=== PATIENT | male | born 1955 | race Caucasian/White ===

== ENCOUNTER → 2017-10-20 | Outpatient (CLI) | payer BC ==
[~2017-10-20] MED LIST: AMOXICILLIN/CLA1 TA1 PO; BACTRIM DS 8001 TAB PO; CEPHALEXIN500 M1 PO; DIABETA 5MG5 MG/TAB PO; JANUMET 1000 MG1 TA1 PO; LEVAQUIN 5500 MG/TA1 PO; LEVEMIR SQ; NO HOME MEDICATIONS; NORCO 325 MG-7.1 TAB PO; NOVLOG SQ; VIAGRA 25MG TAB25 MG PO; VICODIN 5/5001 UDTAB PO; ZESTRIL 10MG10 MG PO
== END ==
LOC: ZCOL.LAB 16:13
DX: M79.672 Pain in left foot (principal)

== ENCOUNTER 2017-10-26 17:55 | Inpatient (IN) | payer BC ==
[~2017-10-26] VITALS: Ht 170.2 cm; Wt 108.7 kg
[2017-10-26 18:19] VITALS: BP 106/66; PULSE 88; TEMP 108.7; TEMP 98.5
[2017-10-26 19:00] LABS: HEMATOCRIT 40.3 % (42.0-52.0); HEMOGLOBIN 13.3 g/dl (13.5-18.0); MEAN CELL VOLUME 87 fl (80.0-100.0); MEAN CORPUSCULAR HEMOGLOBIN 29 pg (27.0-31.0); MEAN CORPUSCULAR HGB CONC 33 g/dl (33.0-37.0); MEAN PLATELET VOLUME 9.9 fl (7.4-10.4); PLATELET COUNT 610 K/mm3 (130-400); RED BLOOD COUNT 4.65 M/mm3 (4.20-5.60)
[2017-10-26 19:01] LABS: WHITE BLOOD COUNT 22.2 K/mm3 (4.8-10.8)
[2017-10-26 19:02] LABS: ADD PATHOLOGY DIFF REVIEW NO
[2017-10-26 19:06] LABS: CALCIUM 10.4 mg/dL (8.4-10.2); CREATININE, serum 2.31 mg/dL (0.66-1.25)
[2017-10-26 19:10] LABS: POTASSIUM 6.1 mmol/L (3.4-5.0)
[2017-10-26 19:11] LABS: LACTIC ACID 1.4 mmol/L (0.4-2.0)
[2017-10-26 19:13] LABS: BAND 2 % (0-10); HEMOGLOBIN A1C 7.6 %; LYMPHOCYTE 12 % (20.0-51.0); NEUTROPHILS 77 % (42.0-75.2); PLATELET ESTIMATE INCREASED (NORMAL); TOTAL CELLS COUNTED 100
[2017-10-26 21:30] VITALS: BP 116/56; PULSE 77; TEMP 98.8
[2017-10-27] VITALS (11 sets, daily range): BP systolic 100–155; BP diastolic 39–99; PULSE 61–88; TEMP 98–98.8
[2017-10-27 01:31] LABS: HYALINE CAST >12 /lpf; MUCOUS Present /lpf; PH 5 (5-8); SQUAMOUS EPITHELIAL None Seen /hpf; URINE APPEARANCE Hazy; URINE BACTERIA None Seen /hpf; URINE BILIRUBIN Negative (NEGATIVE); URINE BLOOD Negative (NEGATIVE); URINE CALCIUM OXALATE CRYSTAL Present /hpf; URINE COLOR Yellow; URINE GLUCOSE Negative (NEGATIVE); URINE KETONE Trace (NEGATIVE); URINE LEUKOCYTE ESTERASE Negative (NEGATIVE); URINE PROTEIN(semi-quant) Negative (NEGATIVE); URINE RBC 0-2 /hpf; URINE UROBILINOGEN >=4.0 mg/dL (NEGATIVE); URINE WBC 0-2 /hpf
[2017-10-27 01:34] LABS: AMPHETAMINE URINE NEGATIVE; BARBITURATES URINE NEGATIVE; BENZODIAZEPINES URINE POSITIVE; BUPRENORPHINE URINE NEGATIVE; METHADONE URINE NEGATIVE; OPIATES URINE NEGATIVE; OXYCODONE URINE NEGATIVE; PHENCYCLIDINE URINE NEGATIVE; PROPOXYPHENE URINE NEGATIVE; THC CANNABINOIDS URINE NEGATIVE; TRICYCLIC ANTIDEPRESS URINE NEGATIVE
[2017-10-27 01:41] LABS: COLLECTION METHOD CLEAN CATCH
[2017-10-27 06:52] LABS: MEAN CELL VOLUME 88 fl (80.0-100.0); MEAN CORPUSCULAR HGB CONC 33 g/dl (33.0-37.0); RED BLOOD COUNT 3.75 M/mm3 (4.20-5.60); WHITE BLOOD COUNT 13.9 K/mm3 (4.8-10.8)
[2017-10-27 06:58] LABS: INR 1.4 (0.8-3.0); PROTHROMBIN TIME 16.4 SECONDS (9.7-12.8)
[2017-10-27 07:01] LABS: ADD PATHOLOGY DIFF REVIEW NO; HEMATOCRIT 32.9 % (42.0-52.0); HEMOGLOBIN 10.7 g/dl (13.5-18.0); MEAN CORPUSCULAR HEMOGLOBIN 29 pg (27.0-31.0); PLATELET COUNT 471 K/mm3 (130-400)
[2017-10-27 07:06] LABS: ADJUSTED CALCIUM 9.9 mg/dL (8.4-10.2); ALBUMIN 2.9 gm/dL (3.5-5.0); BILIRUBIN,TOTAL 0.5 mg/dL (0.0-1.0); CREATININE, serum 1.37 mg/dL (0.66-1.25); POTASSIUM 4.9 mmol/L (3.4-5.0); TOTAL PROTEIN 6.7 gm/dL (6.4-8.2)
[2017-10-27 07:21] LABS: BAND 5 % (0-10); EOSINOPHIL 1 % (0-4); LYMPHOCYTE 15 % (20.0-51.0); NEUTROPHILS 73 % (42.0-75.2); PLATELET ESTIMATE INCREASED (NORMAL); TOTAL CELLS COUNTED 100
[2017-10-27] MEDS ORDERED: ASPIRIN 81M81 MG/TA2 PO (08:25)
[2017-10-27] MEDS ORDERED: ZOCOR 40MG40 MG PO (08:26)
[2017-10-27] MEDS ORDERED: VIAGRA100 M1 PO (08:27)
[2017-10-27] MEDS ORDERED: LASIX 20MG TABL20 MG PO (08:27)
[2017-10-27] MEDS ORDERED: TRESIBA FL200 UNIT/1 SQ (08:29)
[2017-10-27] MEDS ORDERED: BACTRIM DS 8001 TAB PO (08:33)
[2017-10-28 01:54] VITALS: BP 139/64; PULSE 79; TEMP 98.2
[2017-10-28 04:49] VITALS: BP 124/45; PULSE 71; TEMP 98.5
[2017-10-28 07:17] LABS: MEAN CELL VOLUME 88 fl (80.0-100.0); MEAN CORPUSCULAR HGB CONC 32 g/dl (33.0-37.0); MEAN PLATELET VOLUME 10.2 fl (7.4-10.4); PLATELET COUNT 435 K/mm3 (130-400); RED BLOOD COUNT 3.48 M/mm3 (4.20-5.60); WHITE BLOOD COUNT 9.6 K/mm3 (4.8-10.8)
[2017-10-28 07:18] LABS: ADD PATHOLOGY DIFF REVIEW NO; HEMATOCRIT 30.6 % (42.0-52.0); HEMOGLOBIN 9.9 g/dl (13.5-18.0); MEAN CORPUSCULAR HEMOGLOBIN 28 pg (27.0-31.0)
[2017-10-28 07:27] LABS: CALCIUM 8.5 mg/dL (8.4-10.2); CREATININE, serum 0.91 mg/dL (0.66-1.25); POTASSIUM 4.8 mmol/L (3.4-5.0)
[2017-10-28 07:48] LABS: BAND 1 % (0-10); BASOPHIL 2 % (0-2); EOSINOPHIL 2 % (0-4); LYMPHOCYTE 19 % (20.0-51.0); NEUTROPHILS 73 % (42.0-75.2); NUCLEATED RED BLOOD CELL 1 (0-6); PLATELET ESTIMATE NORMAL (NORMAL); TOTAL CELLS COUNTED 100
[2017-10-28 14:16] VITALS: BP 113/50; PULSE 75; TEMP 98.7
[2017-10-28 18:19] VITALS: BP 114/44; PULSE 75; TEMP 98.6
[2017-10-28 21:13] VITALS: BP 142/59; PULSE 77; TEMP 98.5
[2017-10-29 06:11] LABS: BASO # 0.1 (0.0-0.2); BASO % 1.2 % (0.0-2.0); EOS # 0.3 (0.0-0.7); EOS % 3.3 % (0-4.0); GRAN # 4.2 (1.4-6.5); GRAN % 55.6 % (42.2-75.2); LYMPH # 2.3 (1.2-3.4); LYMPH % 30.4 % (20.0-51.0); MEAN CELL VOLUME 89 fl (80.0-100.0); MEAN CORPUSCULAR HGB CONC 32 g/dl (33.0-37.0); MEAN PLATELET VOLUME 9.9 fl (7.4-10.4); MONO # 0.6 (0.1-0.6); MONO % 8.4 % (1.7-9.3); PLATELET COUNT 411 K/mm3 (130-400); WHITE BLOOD COUNT 7.5 K/mm3 (4.8-10.8)
[2017-10-29 06:14] LABS: MEAN CORPUSCULAR HEMOGLOBIN 29 pg (27.0-31.0)
[2017-10-29 06:22] VITALS: BP 132/65; PULSE 72; TEMP 98
[2017-10-29 06:23] LABS: CALCIUM 8.6 mg/dL (8.4-10.2); CREATININE, serum 0.76 mg/dL (0.66-1.25); POTASSIUM 4.5 mmol/L (3.4-5.0)
[2017-10-29 09:24] VITALS: BP 120/50; PULSE 76; TEMP 98.4
[2017-10-29 14:12] VITALS: BP 134/66; PULSE 76; TEMP 98.8
[2017-10-29 22:08] VITALS: BP 138/57; PULSE 80; TEMP 98.6
[2017-10-30 06:31] VITALS: BP 131/73; PULSE 71; TEMP 98.6
[2017-10-30 07:00] LABS: CALCIUM 8.6 mg/dL (8.4-10.2); CREATININE, serum 0.71 mg/dL (0.66-1.25); POTASSIUM 4.3 mmol/L (3.4-5.0)
[2017-10-30 09:28] VITALS: BP 116/58; PULSE 71; TEMP 97.3
[2017-10-30 13:20] VITALS: BP 127/60; PULSE 73; TEMP 98.6
[2017-10-30 16:41] LABS: CREATININE, serum 0.8 mg/dL (0.66-1.25)
[2017-10-30 16:55] LABS: FRACTIONAL EXCRETION OF NA+ 0.6 %
[2017-10-30 22:27] VITALS: BP 127/58; PULSE 75; TEMP 97.9
[2017-10-31 01:47] VITALS: BP 122/65; PULSE 80; TEMP 97.9
[2017-10-31 06:36] LABS: CALCIUM 8.6 mg/dL (8.4-10.2); CREATININE, serum 0.71 mg/dL (0.66-1.25); POTASSIUM 4.7 mmol/L (3.4-5.0)
[2017-10-31 06:41] VITALS: BP 109/50; PULSE 64; TEMP 98.5
[2017-10-31 09:30] VITALS: BP 96/43; PULSE 80; TEMP 98.2
[2017-10-31 13:29] VITALS: BP 113/50; PULSE 72; TEMP 97.4
[2017-10-31 17:18] VITALS: BP 139/68; PULSE 72; TEMP 98.2
[2017-10-31 21:41] VITALS: BP 113/53; PULSE 77; TEMP 98.5
[2017-11-01 01:18] VITALS: BP 118/53; PULSE 72; TEMP 98.2
[2017-11-01 05:15] VITALS: BP 130/66; PULSE 75; TEMP 97.6
[2017-11-01 09:16] LABS: C-REACTIVE PROTEIN 2.6 mg/dL (0.0-0.9); CALCIUM 8.9 mg/dL (8.4-10.2); CREATININE, serum 0.75 mg/dL (0.66-1.25); POTASSIUM 4.3 mmol/L (3.4-5.0)
[2017-11-01 10:47] VITALS: BP 142/81; PULSE 99; TEMP 98.5
[2017-11-01 14:53] VITALS: BP 136/66; PULSE 80; TEMP 97.9
[2017-11-01 17:57] VITALS: BP 106/81; PULSE 80; TEMP 98.3
[2017-11-01 22:01] VITALS: BP 116/58; PULSE 79; TEMP 98.5
[2017-11-02 05:14] VITALS: BP 132/66; PULSE 69; TEMP 98.4
[2017-11-02 07:48] LABS: CALCIUM 9.1 mg/dL (8.4-10.2); CREATININE, serum 0.69 mg/dL (0.66-1.25); POTASSIUM 4.1 mmol/L (3.4-5.0)
[2017-11-02 10:00] VITALS: BP 111/57; PULSE 71; TEMP 98.1
[2017-11-02] MEDS ORDERED: ROCEPHIN 2GM VIAL21 IJ (10:52)
[2017-11-02] MEDS ORDERED: ASPI325T6 PO (12:07)
[2017-11-02 14:02] VITALS: BP 117/69; PULSE 70; TEMP 98.5
[2017-11-02] MEDS ORDERED: NOVLOG SQ (15:34)
[2017-11-02] MEDS ORDERED: TRESIBA FL200 UNIT/1 SQ (15:34)
[2017-11-02] MEDS ORDERED: NOVOLOG FLEX100 U/ML SQ (15:43)
== END 2017-11-02 19:45 | disposition home or self-care (01) | DRG 854 ==
LOC: SURG 17:55
PROVIDERS: Internal Medicine Nephrology; Nurse Practitioner; Orthopaedic Surgery; Physician Assistant
PROC: 0Y6Y0Z0 Detachment at Left 5th Toe, Complete, Open Approach (ICD-10-PCS; 2017-10-27)
PROC: 0Y6W0Z0 Detachment at Left 4th Toe, Complete, Open Approach (ICD-10-PCS; 2017-10-27)
PROC: 0QBM0ZZ Excision of Left Tarsal, Open Approach (ICD-10-PCS; principal; 2017-10-27 14:45)
PROC: 0Y6U0Z0 Detachment at Left 3rd Toe, Complete, Open Approach (ICD-10-PCS; 2017-10-27 14:45)
DX: A41.01 Sepsis due to Methicillin susceptible Staphylococcus aureus (principal); M86.172 Other acute osteomyelitis, left ankle and foot; L97.424 Non-pressure chronic ulcer of left heel and midfoot with necrosis of bone; N17.9 Acute kidney failure, unspecified; E87.1 Hypo-osmolality and hyponatremia; E87.2 Acidosis; E11.42 Type 2 diabetes mellitus with diabetic polyneuropathy; E11.69 Type 2 diabetes mellitus with other specified complication; B95.1 Streptococcus, group B, as the cause of diseases classified elsewhere; E11.621 Type 2 diabetes mellitus with foot ulcer; I10 Essential (primary) hypertension; F17.220 Nicotine dependence, chewing tobacco, uncomplicated; E87.5 Hyperkalemia; D64.9 Anemia, unspecified; B95.61 Methicillin susceptible Staphylococcus aureus infection as the cause of diseases classified elsewhere
CPT/HCPCS: 99222-AI; 99232-AI; 99233-AI; A9284; C1751; C1894; J0690; J0696; J1644; J1650; J1815; J2185; J2250; J2704; J2997; J3010; J3370; J7030; J7050

== ENCOUNTER 2017-11-03 12:47 | Outpatient (RCR) | payer BC ==
[~2017-11-03] VITALS: Ht 170.2 cm; Wt 109.5 kg
[~2017-11-03 12:47] MED LIST changes: +ASPI325T6 PO; +ASPIRIN 81M81 MG/TA2 PO; +LASIX 20MG TABL20 MG PO; +NOVOLOG FLEX100 U/ML SQ; +ROCEPHIN 2GM VIAL21 IJ; +TRESIBA FL200 UNIT/1 SQ; +VIAGRA100 M1 PO; +ZOCOR 40MG40 MG PO
[2017-11-03 13:16] VITALS: BP 113/63; PULSE 84; TEMP 97.7
[2017-11-04 06:43] VITALS: BP 91/51; PULSE 85; TEMP 97.6
[2017-11-05 08:28] VITALS: BP 89/53; PULSE 87; TEMP 97.2
[2017-11-05 09:03] LABS: MEAN CELL VOLUME 87 fl (80.0-100.0); MEAN CORPUSCULAR HGB CONC 33 g/dl (33.0-37.0); MEAN PLATELET VOLUME 10.3 fl (7.4-10.4); PLATELET COUNT 277 K/mm3 (130-400); RED BLOOD COUNT 3.77 M/mm3 (4.20-5.60)
[2017-11-05 09:04] LABS: HEMATOCRIT 32.9 % (42.0-52.0); HEMOGLOBIN 10.8 g/dl (13.5-18.0); MEAN CORPUSCULAR HEMOGLOBIN 29 pg (27.0-31.0)
[2017-11-05 09:19] LABS: ALBUMIN 3.4 gm/dL (3.5-5.0); BILIRUBIN,TOTAL 0.4 mg/dL (0.0-1.0); C-REACTIVE PROTEIN 1.4 mg/dL (0.0-0.9); CREATININE, serum 1.18 mg/dL (0.66-1.25); POTASSIUM 4.5 mmol/L (3.4-5.0); TOTAL PROTEIN 6.9 gm/dL (6.4-8.2)
[2017-11-05 10:30] LABS: ERYTHROCYTE SEDIMENTATION RATE 40 mm/hr (0-30)
[2017-11-06 07:15] VITALS: BP 90/50; PULSE 85; TEMP 98
[2017-11-07 07:15] VITALS: BP 107/55; PULSE 79; TEMP 97.5
== END 2017-11-07 19:00 | disposition home or self-care (01) ==
LOC: EUO 12:51
PROVIDERS: Internal Medicine
DX: M86.9 Osteomyelitis, unspecified (principal)
CPT/HCPCS: J0696; J1644

== ENCOUNTER → 2017-11-25 | Outpatient (CLI) | payer BC ==
[~2017-11-25] MED LIST changes: +CUBICIN 500MG500 MG IV
== END ==
LOC: COL.RAD 12:59
DX: E11.621 Type 2 diabetes mellitus with foot ulcer (principal)

== ENCOUNTER → 2017-11-26 | Outpatient (CLI) | payer BC | LOC: COL.RAD 10:11 | DX: Z01.89 Encounter for other specified special examinations (principal) ==

== ENCOUNTER 2017-12-12 07:25 | Outpatient (RCR) | payer BC ==
[2017-11-08 09:15] VITALS: BP 103/59; PULSE 78; TEMP 97.8
[2017-11-09 10:00] VITALS: BP 111/53; PULSE 90; TEMP 97.7
[2017-11-10 09:01] VITALS: BP 114/59; PULSE 77; TEMP 97.5
[2017-11-11 08:03] VITALS: BP 92/45; PULSE 82; TEMP 97.5
[2017-11-11 08:58] LABS: MEAN CELL VOLUME 87 fl (80.0-100.0); MEAN CORPUSCULAR HGB CONC 33 g/dl (33.0-37.0); MEAN PLATELET VOLUME 12.3 fl (7.4-10.4); PLATELET COUNT 179 K/mm3 (130-400); RED BLOOD COUNT 3.67 M/mm3 (4.20-5.60); REDCELL DISTRIBUTION WIDTH-CV 13.5 % (11.5-14.5)
[2017-11-11 09:04] LABS: HEMATOCRIT 31.9 % (42.0-52.0); HEMOGLOBIN 10.6 g/dl (13.5-18.0); MEAN CORPUSCULAR HEMOGLOBIN 29 pg (27.0-31.0)
[2017-11-11 09:08] LABS: ALBUMIN 3.4 gm/dL (3.5-5.0); BILIRUBIN,TOTAL 0.6 mg/dL (0.0-1.0); C-REACTIVE PROTEIN 5.9 mg/dL (0.0-0.9); CALCIUM 8.9 mg/dL (8.4-10.2); CREATININE, serum 1.17 mg/dL (0.66-1.25); POTASSIUM 4.6 mmol/L (3.4-5.0); TOTAL PROTEIN 6.9 gm/dL (6.4-8.2)
[2017-11-11 09:26] LABS: ERYTHROCYTE SEDIMENTATION RATE 52 mm/hr (0-30)
[2017-11-12 07:26] VITALS: BP 91/50; PULSE 82; TEMP 97.4
[2017-11-13 08:12] VITALS: BP 103/59; PULSE 83; TEMP 98.2
[2017-11-14 07:35] VITALS: BP 85/40; PULSE 852; TEMP 98.2
[2017-11-14 07:46] VITALS: BP 103/52; PULSE 87
[2017-11-15 07:09] VITALS: BP 131/59; PULSE 75
[2017-11-16 07:01] VITALS: BP 113/60; PULSE 83; TEMP 97.9
[2017-11-16 07:50] LABS: BASO % 0.4 % (0.0-2.0); EOS # 0.4 (0.0-0.7); EOS % 4.3 % (0-4.0); GRAN # 6.9 (1.4-6.5); GRAN % 76.7 % (42.2-75.2); LYMPH # 0.9 (1.2-3.4); MEAN CELL VOLUME 85 fl (80.0-100.0); MEAN CORPUSCULAR HGB CONC 34 g/dl (33.0-37.0); MONO # 0.7 (0.1-0.6); MONO % 8.2 % (1.7-9.3); PLATELET COUNT 178 K/mm3 (130-400); RED BLOOD COUNT 3.69 M/mm3 (4.20-5.60); REDCELL DISTRIBUTION WIDTH-CV 13.6 % (11.5-14.5)
[2017-11-16 07:51] LABS: HEMATOCRIT 31.3 % (42.0-52.0); HEMOGLOBIN 10.5 g/dl (13.5-18.0); MEAN CORPUSCULAR HEMOGLOBIN 28 pg (27.0-31.0)
[2017-11-16 08:01] LABS: ALBUMIN 3.1 gm/dL (3.5-5.0); BILIRUBIN,TOTAL 3.5 mg/dL (0.0-1.0); CALCIUM 8.8 mg/dL (8.4-10.2); CREATININE, serum 0.81 mg/dL (0.66-1.25); POTASSIUM 4.3 mmol/L (3.4-5.0); TOTAL PROTEIN 6.5 gm/dL (6.4-8.2)
[2017-11-16 08:14] LABS: ERYTHROCYTE SEDIMENTATION RATE 78 mm/hr (0-30)
[2017-11-16 08:22] LABS: C-REACTIVE PROTEIN 18.4 mg/dL (0.0-0.9)
[2017-11-17 07:14] VITALS: BP 115/74; PULSE 81; TEMP 97.6
[2017-11-18 07:15] VITALS: BP 104/61; PULSE 84; TEMP 97.7
[2017-11-19 07:12] VITALS: BP 99/54; PULSE 84; TEMP 97.2
[2017-11-23 08:17] VITALS: BP 103/58; PULSE 88; TEMP 97.5
[2017-11-23 08:22] LABS: HEMATOCRIT 33.4 % (42.0-52.0); HEMOGLOBIN 11.2 g/dl (13.5-18.0); MEAN CELL VOLUME 84 fl (80.0-100.0); MEAN CORPUSCULAR HEMOGLOBIN 28 pg (27.0-31.0); MEAN CORPUSCULAR HGB CONC 34 g/dl (33.0-37.0); PLATELET COUNT 383 K/mm3 (130-400); REDCELL DISTRIBUTION WIDTH-CV 15.5 % (11.5-14.5)
[2017-11-23 08:31] LABS: ALBUMIN 3.5 gm/dL (3.5-5.0); BILIRUBIN,TOTAL 3.2 mg/dL (0.0-1.0); C-REACTIVE PROTEIN 2.5 mg/dL (0.0-0.9); CALCIUM 9.4 mg/dL (8.4-10.2); CREATININE, serum 0.79 mg/dL (0.66-1.25); POTASSIUM 4.7 mmol/L (3.4-5.0); TOTAL PROTEIN 7.1 gm/dL (6.4-8.2)
[2017-11-23 08:38] LABS: BAND 4 % (0-10); EOSINOPHIL 5 % (0-4); LYMPHOCYTE 24 % (20.0-51.0); MYELOCYTE 1 % (0-0); NEUTROPHILS 59 % (42.0-75.2)
[2017-11-23 08:42] LABS: PLATELET ESTIMATE NORMAL (NORMAL)
[2017-11-23 08:43] LABS: STOMATOCYTE 2+; TARGET CELLS 2+
[2017-11-23 08:44] LABS: TOXIC GRANULATION PRESENT
[2017-11-23 08:50] LABS: ERYTHROCYTE SEDIMENTATION RATE 58 mm/hr (0-30)
[2017-11-26 08:14] VITALS: BP 107/54; PULSE 92; TEMP 97.4
[2017-11-26 08:38] LABS: BASO # 0.1 (0.0-0.2); BASO % 1.2 % (0.0-2.0); EOS # 0.4 (0.0-0.7); EOS % 4.3 % (0-4.0); GRAN # 5.8 (1.4-6.5); GRAN % 63.7 % (42.2-75.2); LYMPH % 21.3 % (20.0-51.0); MEAN CELL VOLUME 86 fl (80.0-100.0); MEAN CORPUSCULAR HGB CONC 33 g/dl (33.0-37.0); MEAN PLATELET VOLUME 10.6 fl (7.4-10.4); MONO # 0.8 (0.1-0.6); MONO % 8.5 % (1.7-9.3); PLATELET COUNT 388 K/mm3 (130-400); RED BLOOD COUNT 3.89 M/mm3 (4.20-5.60)
[2017-11-26 08:40] LABS: HEMATOCRIT 33.5 % (42.0-52.0); MEAN CORPUSCULAR HEMOGLOBIN 28 pg (27.0-31.0)
[2017-11-26 08:58] LABS: ALBUMIN 3.6 gm/dL (3.5-5.0); C-REACTIVE PROTEIN 1.2 mg/dL (0.0-0.9); CALCIUM 9.5 mg/dL (8.4-10.2); CREATININE, serum 0.81 mg/dL (0.66-1.25); POTASSIUM 4.6 mmol/L (3.4-5.0)
[2017-11-26 09:03] LABS: ERYTHROCYTE SEDIMENTATION RATE 35 mm/hr (0-30)
[2017-11-26 11:14] VITALS: BP 112/52; PULSE 81; TEMP 97.2
[2017-11-27 07:41] VITALS: BP 140/55; PULSE 91
[2017-11-28 07:30] VITALS: BP 141/56; PULSE 90; TEMP 97.4
[2017-11-29 07:56] VITALS: BP 85/48; PULSE 91; TEMP 97.4
[2017-11-30 06:45] VITALS: BP 105/62; PULSE 90; TEMP 97.3
[2017-12-01 07:14] VITALS: BP 107/49; PULSE 81; TEMP 97.1
[2017-12-02 06:58] VITALS: BP 98/55; PULSE 86; TEMP 97.8
[2017-12-02 07:14] LABS: HEMATOCRIT 31.5 % (42.0-52.0); HEMOGLOBIN 10.3 g/dl (13.5-18.0); MEAN CELL VOLUME 88 fl (80.0-100.0); MEAN CORPUSCULAR HEMOGLOBIN 29 pg (27.0-31.0); MEAN CORPUSCULAR HGB CONC 33 g/dl (33.0-37.0); MEAN PLATELET VOLUME 10.8 fl (7.4-10.4); PLATELET COUNT 277 K/mm3 (130-400); REDCELL DISTRIBUTION WIDTH-CV 15.6 % (11.5-14.5)
[2017-12-02 07:27] LABS: ALBUMIN 3.4 gm/dL (3.5-5.0); BILIRUBIN,TOTAL 1.4 mg/dL (0.0-1.0); C-REACTIVE PROTEIN 1.2 mg/dL (0.0-0.9); CALCIUM 9.3 mg/dL (8.4-10.2); CREATININE, serum 0.86 mg/dL (0.66-1.25); POTASSIUM 4.6 mmol/L (3.4-5.0); TOTAL PROTEIN 6.5 gm/dL (6.4-8.2)
[2017-12-02 07:33] LABS: ERYTHROCYTE SEDIMENTATION RATE 37 mm/hr (0-30)
[2017-12-03 07:05] VITALS: BP 113/56; PULSE 86; TEMP 97.2
[2017-12-04 07:51] VITALS: BP 118/66; PULSE 80; TEMP 97.4
[2017-12-05 07:35] VITALS: BP 110/53; PULSE 90; TEMP 97.5
[2017-12-06 07:20] VITALS: BP 98/52; PULSE 86; TEMP 98
[2017-12-06 07:32] LABS: BASO # 0.1 (0.0-0.2); BASO % 1.3 % (0.0-2.0); EOS # 0.3 (0.0-0.7); EOS % 3.6 % (0-4.0); GRAN # 4.4 (1.4-6.5); LYMPH # 2.1 (1.2-3.4); LYMPH % 28.2 % (20.0-51.0); MEAN CELL VOLUME 87 fl (80.0-100.0); MEAN CORPUSCULAR HGB CONC 33 g/dl (33.0-37.0); MEAN PLATELET VOLUME 11.6 fl (7.4-10.4); MONO # 0.5 (0.1-0.6); MONO % 6.5 % (1.7-9.3); PLATELET COUNT 283 K/mm3 (130-400); RED BLOOD COUNT 3.84 M/mm3 (4.20-5.60); REDCELL DISTRIBUTION WIDTH-CV 15.4 % (11.5-14.5)
[2017-12-06 07:33] LABS: HEMATOCRIT 33.5 % (42.0-52.0); HEMOGLOBIN 10.9 g/dl (13.5-18.0); MEAN CORPUSCULAR HEMOGLOBIN 28 pg (27.0-31.0)
[2017-12-06 07:47] LABS: ALBUMIN 3.6 gm/dL (3.5-5.0); BILIRUBIN,TOTAL 1.2 mg/dL (0.0-1.0); C-REACTIVE PROTEIN 1.4 mg/dL (0.0-0.9); CALCIUM 9.3 mg/dL (8.4-10.2); CREATININE, serum 1.02 mg/dL (0.66-1.25); POTASSIUM 4.3 mmol/L (3.4-5.0); TOTAL PROTEIN 6.9 gm/dL (6.4-8.2)
[2017-12-06 08:00] LABS: ERYTHROCYTE SEDIMENTATION RATE 38 mm/hr (0-30)
[2017-12-07 06:49] VITALS: BP 107/50; PULSE 90; TEMP 97.3
[2017-12-08 07:04] VITALS: BP 118/105; PULSE 100; TEMP 97.9
[2017-12-09 06:39] VITALS: BP 114/53; PULSE 92; TEMP 97.3
[2017-12-10 07:16] VITALS: BP 116/55; PULSE 81; TEMP 97.3
[2017-12-11 08:06] VITALS: BP 145/64; PULSE 81; TEMP 97.8
[~2017-12-12] VITALS: Ht 170.2 cm; Wt 113.2 kg
[2017-12-13 06:43] VITALS: BP 89/64; PULSE 86
[2017-12-14 07:07] VITALS: BP 95/75; PULSE 93
[2017-12-15 07:17] VITALS: BP 138/77; PULSE 84; TEMP 98.1
[2017-12-15 07:23] LABS: BASO # 0.1 (0.0-0.2); EOS # 0.4 (0.0-0.7); EOS % 4.4 % (0-4.0); GRAN # 5.5 (1.4-6.5); LYMPH # 2.4 (1.2-3.4); LYMPH % 26.8 % (20.0-51.0); MEAN CELL VOLUME 87 fl (80.0-100.0); MEAN CORPUSCULAR HGB CONC 33 g/dl (33.0-37.0); MEAN PLATELET VOLUME 11.5 fl (7.4-10.4); MONO # 0.5 (0.1-0.6); MONO % 5.5 % (1.7-9.3); PLATELET COUNT 238 K/mm3 (130-400); RED BLOOD COUNT 4.05 M/mm3 (4.20-5.60); REDCELL DISTRIBUTION WIDTH-CV 15.1 % (11.5-14.5)
[2017-12-15 07:25] LABS: HEMATOCRIT 35.3 % (42.0-52.0); HEMOGLOBIN 11.6 g/dl (13.5-18.0); MEAN CORPUSCULAR HEMOGLOBIN 29 pg (27.0-31.0)
[2017-12-15 07:38] LABS: ALBUMIN 3.8 gm/dL (3.5-5.0); BILIRUBIN,TOTAL 0.9 mg/dL (0.0-1.0); C-REACTIVE PROTEIN 0.7 mg/dL (0.0-0.9); CALCIUM 9.3 mg/dL (8.4-10.2); CREATININE, serum 0.87 mg/dL (0.66-1.25); POTASSIUM 4.5 mmol/L (3.4-5.0); TOTAL PROTEIN 6.8 gm/dL (6.4-8.2)
[2017-12-15 07:57] LABS: ERYTHROCYTE SEDIMENTATION RATE 20 mm/hr (0-30)
[2017-12-16 06:53] VITALS: BP 123/57; PULSE 80; TEMP 97.5
[2017-12-17 07:17] VITALS: BP 133/57; PULSE 84; TEMP 97.8
[2017-12-18 07:30] VITALS: BP 122/64; PULSE 87; TEMP 97.4
[2017-12-19 07:53] VITALS: BP 116/63; PULSE 87; TEMP 97.8
[2017-12-20 06:43] VITALS: BP 130/62; PULSE 84; TEMP 97.2
[2017-12-21 07:08] VITALS: BP 108/54; PULSE 92; TEMP 97.7
[2017-12-22 07:11] VITALS: BP 115/52; PULSE 88
[2017-12-22 07:22] LABS: BASO # 0.1 (0.0-0.2); EOS # 0.5 (0.0-0.7); EOS % 4.7 % (0-4.0); GRAN # 6.2 (1.4-6.5); GRAN % 63.9 % (42.2-75.2); HEMATOCRIT 36.3 % (42.0-52.0); LYMPH # 2.4 (1.2-3.4); LYMPH % 24.2 % (20.0-51.0); MEAN CELL VOLUME 87 fl (80.0-100.0); MEAN CORPUSCULAR HEMOGLOBIN 29 pg (27.0-31.0); MEAN CORPUSCULAR HGB CONC 33 g/dl (33.0-37.0); MEAN PLATELET VOLUME 11.3 fl (7.4-10.4); MONO # 0.6 (0.1-0.6); MONO % 5.9 % (1.7-9.3); PLATELET COUNT 251 K/mm3 (130-400); RED BLOOD COUNT 4.17 M/mm3 (4.20-5.60); REDCELL DISTRIBUTION WIDTH-CV 15.1 % (11.5-14.5)
[2017-12-22 07:47] LABS: ALBUMIN 3.8 gm/dL (3.5-5.0); BILIRUBIN,TOTAL 0.8 mg/dL (0.0-1.0); C-REACTIVE PROTEIN 0.9 mg/dL (0.0-0.9); CALCIUM 9.6 mg/dL (8.4-10.2); CREATININE, serum 0.91 mg/dL (0.66-1.25); ERYTHROCYTE SEDIMENTATION RATE 22 mm/hr (0-30); POTASSIUM 4.8 mmol/L (3.4-5.0); TOTAL PROTEIN 6.5 gm/dL (6.4-8.2)
[2017-12-23 07:11] VITALS: BP 117/99; PULSE 88; TEMP 97.8
[2017-12-24 07:12] VITALS: BP 128/58; PULSE 86; TEMP 97.8
[2017-12-25 07:25] VITALS: BP 122/65; PULSE 101; TEMP 97.7
[2017-12-26 07:34] VITALS: BP 142/62; PULSE 92; TEMP 97.6
[2017-12-27 06:40] VITALS: BP 111/59; PULSE 91; TEMP 98
[2017-12-27 07:00] LABS: MEAN CELL VOLUME 87 fl (80.0-100.0); MEAN CORPUSCULAR HGB CONC 34 g/dl (33.0-37.0); PLATELET COUNT 241 K/mm3 (130-400); RED BLOOD COUNT 3.94 M/mm3 (4.20-5.60)
[2017-12-27 07:15] LABS: HEMATOCRIT 34.4 % (42.0-52.0); HEMOGLOBIN 11.6 g/dl (13.5-18.0); MEAN CORPUSCULAR HEMOGLOBIN 29 pg (27.0-31.0)
[2017-12-27 07:20] LABS: ALBUMIN 3.8 gm/dL (3.5-5.0); BILIRUBIN,TOTAL 0.9 mg/dL (0.0-1.0); C-REACTIVE PROTEIN 1.4 mg/dL (0.0-0.9); CALCIUM 9.3 mg/dL (8.4-10.2); CREATININE, serum 0.9 mg/dL (0.66-1.25); POTASSIUM 4.2 mmol/L (3.4-5.0); TOTAL PROTEIN 6.8 gm/dL (6.4-8.2)
[2017-12-27 07:38] LABS: ERYTHROCYTE SEDIMENTATION RATE 23 mm/hr (0-30)
[2017-12-28 07:23] VITALS: BP 110/55; PULSE 87; TEMP 97.3
[2017-12-29 07:37] VITALS: BP 114/60; PULSE 79; TEMP 98
[2017-12-30 06:54] VITALS: BP 124/62; PULSE 90; TEMP 97.7
[2017-12-31 07:08] VITALS: BP 120/61; PULSE 82; TEMP 97.9
[2018-01-01 07:39] VITALS: BP 113/63; PULSE 59; TEMP 97.8
[2018-01-02 07:42] VITALS: BP 152/52; PULSE 76; TEMP 97.9
[2018-01-02 08:16] VITALS: BP 134/65; PULSE 77; TEMP 97.3
[2018-01-03 06:33] VITALS: BP 126/98; PULSE 89; TEMP 97.8
[2018-01-04 07:04] VITALS: BP 115/56; PULSE 83; TEMP 98.1
[2018-01-05 07:00] VITALS: BP 178/56; PULSE 85; TEMP 97.4
[2018-01-05 07:34] LABS: MEAN CELL VOLUME 88 fl (80.0-100.0); MEAN CORPUSCULAR HGB CONC 34 g/dl (33.0-37.0); MEAN PLATELET VOLUME 11.2 fl (7.4-10.4); PLATELET COUNT 208 K/mm3 (130-400); RED BLOOD COUNT 4.01 M/mm3 (4.20-5.60); REDCELL DISTRIBUTION WIDTH-CV 14.6 % (11.5-14.5)
[2018-01-05 07:35] LABS: HEMATOCRIT 35.1 % (42.0-52.0); HEMOGLOBIN 11.8 g/dl (13.5-18.0); MEAN CORPUSCULAR HEMOGLOBIN 29 pg (27.0-31.0)
[2018-01-05 07:38] LABS: ALBUMIN 3.8 gm/dL (3.5-5.0); BILIRUBIN,TOTAL 0.6 mg/dL (0.0-1.0); C-REACTIVE PROTEIN 1.2 mg/dL (0.0-0.9); CALCIUM 8.9 mg/dL (8.4-10.2); CREATININE, serum 0.91 mg/dL (0.66-1.25); POTASSIUM 4.2 mmol/L (3.4-5.0); TOTAL PROTEIN 6.7 gm/dL (6.4-8.2)
[2018-01-05 08:25] LABS: BAND 3 % (0-10); EOSINOPHIL 5 % (0-4); LYMPHOCYTE 24 % (20.0-51.0); NEUTROPHILS 65 % (42.0-75.2); PLATELET ESTIMATE NORMAL (NORMAL)
[2018-01-05 08:26] LABS: ERYTHROCYTE SEDIMENTATION RATE 16 mm/hr (0-30)
[2018-01-06 07:07] VITALS: BP 129/66; PULSE 80; TEMP 97.1
[2018-01-07 07:15] VITALS: BP 113/54; PULSE 86; TEMP 97.9
[2018-01-12 11:49] LABS: ALBUMIN 3.9 gm/dL (3.5-5.0); BILIRUBIN,TOTAL 0.4 mg/dL (0.0-1.0); CREATININE, serum 0.84 mg/dL (0.66-1.25); POTASSIUM 4.6 mmol/L (3.4-5.0); TOTAL PROTEIN 6.8 gm/dL (6.4-8.2)
[2018-01-12 11:51] LABS: BASO # 0.1 (0.0-0.2); EOS # 0.7 (0.0-0.7); GRAN # 5.9 (1.4-6.5); HEMOGLOBIN 12.2 g/dl (13.5-18.0); LYMPH # 2.4 (1.2-3.4); LYMPH % 24.6 % (20.0-51.0); MEAN CELL VOLUME 87 fl (80.0-100.0); MEAN CORPUSCULAR HEMOGLOBIN 30 pg (27.0-31.0); MEAN CORPUSCULAR HGB CONC 34 g/dl (33.0-37.0); MEAN PLATELET VOLUME 11.7 fl (7.4-10.4); MONO # 0.6 (0.1-0.6); MONO % 5.9 % (1.7-9.3); PLATELET COUNT 238 K/mm3 (130-400); RED BLOOD COUNT 4.14 M/mm3 (4.20-5.60); REDCELL DISTRIBUTION WIDTH-CV 14.2 % (11.5-14.5)
[2018-01-12 11:53] LABS: HEMATOCRIT 35.9 % (42.0-52.0)
[2018-01-12 12:38] LABS: ERYTHROCYTE SEDIMENTATION RATE 9 mm/hr (0-30)
[2018-01-17 08:27] LABS: HEMATOCRIT 37.6 % (42.0-52.0); HEMOGLOBIN 12.6 g/dl (13.5-18.0); MEAN CELL VOLUME 87 fl (80.0-100.0); MEAN CORPUSCULAR HEMOGLOBIN 29 pg (27.0-31.0); MEAN CORPUSCULAR HGB CONC 34 g/dl (33.0-37.0); MEAN PLATELET VOLUME 11.5 fl (7.4-10.4); PLATELET COUNT 211 K/mm3 (130-400); RED BLOOD COUNT 4.31 M/mm3 (4.20-5.60)
[2018-01-17 08:29] LABS: ALBUMIN 3.9 gm/dL (3.5-5.0); BILIRUBIN,TOTAL 0.8 mg/dL (0.0-1.0); C-REACTIVE PROTEIN 1.1 mg/dL (0.0-0.9); CALCIUM 9.1 mg/dL (8.4-10.2); CREATININE, serum 0.81 mg/dL (0.66-1.25); POTASSIUM 4.2 mmol/L (3.4-5.0)
[2018-01-17 08:30] VITALS: BP 97/79; PULSE 84; TEMP 98.4
[2018-01-17 09:03] LABS: BAND 2 % (0-10); EOSINOPHIL 4 % (0-4); LYMPHOCYTE 36 % (20.0-51.0); METAMYELOCYTE 1 % (0-0); NEUTROPHILS 55 % (42.0-75.2); PLATELET ESTIMATE NORMAL (NORMAL)
[2018-01-17 09:05] LABS: ERYTHROCYTE SEDIMENTATION RATE 18 mm/hr (0-30)
== END 2018-01-17 08:31 | disposition home or self-care (01) ==
LOC: EUO 12-13 06:30
PROVIDERS: Internal Medicine; Internal Medicine Infectious Disease
DX: E11.69 Type 2 diabetes mellitus with other specified complication (principal); E11.621 Type 2 diabetes mellitus with foot ulcer; E11.610 Type 2 diabetes mellitus with diabetic neuropathic arthropathy; E11.65 Type 2 diabetes mellitus with hyperglycemia; R79.89 Other specified abnormal findings of blood chemistry; Z89.422 Acquired absence of other left toe(s); Z79.4 Long term (current) use of insulin
CPT/HCPCS: J0696; J0878; J1644

== ENCOUNTER → 2018-04-05 | Outpatient (CLI) | payer BC | LOC: ZCOL.LAB 21:51 | DX: E11.621 Type 2 diabetes mellitus with foot ulcer (principal) ==

== ENCOUNTER → 2018-06-06 | Outpatient (CLI) | payer BC | LOC: ZCOL.LAB 14:08 | DX: E11.621 Type 2 diabetes mellitus with foot ulcer (principal); L97.529 Non-pressure chronic ulcer of other part of left foot with unspecified severity ==

== ENCOUNTER → 2018-12-12 | Outpatient (CLI) | payer BC | LOC: ZCOL.LAB 14:01 | DX: E11.621 Type 2 diabetes mellitus with foot ulcer (principal); T81.31XA Disruption of external operation (surgical) wound, not elsewhere classified, initial encounter ==

== ENCOUNTER 2019-03-30 09:34 | Inpatient (IN) | payer BC, MEDICARE ==
[~2019-03-30] VITALS: Ht 172.7 cm; Wt 109.0 kg
[2019-03-30 09:46] VITALS: BP 167/79; PULSE 91; TEMP 97.4
[2019-03-30] MEDS ORDERED: DOXYCYCLINE 10100 MG PO (10:25)
[2019-03-30] MEDS ORDERED: PROAIR HFA0.09 MG/AC IH (10:25)
[2019-03-30] MEDS ORDERED: ASPIRIN E.C. 8181 MG PO (10:26)
[2019-03-30] MEDS ORDERED: NOVOLOG FLEX100 U/ML SQ (10:27)
[2019-03-30] MEDS ORDERED: TRESIBA FL200 UNIT/1 SQ (10:28)
[2019-03-30] MEDS ORDERED: COZAAR 50MG50 MG/TAB PO (10:28)
--- NOTE | 2019-03-30 10:40 | NUR ---
Assessment completed, alert/oriented, vital signs stable, denies pain, patient is SOA at rest/ o2 sats WNL on RA, left lung johnson are tight and wheezing noted throughout, reports productive cough but swallows and does not spit out sputum so he is unsure of the color, heart RRR/ distal pulses are palpalbe, has some mild Edeam to LLE/ had a surgery to that foot and wears compression wrap, meds and allergies / pharmacy reviewed, family present at bedside, H&P done, notified Hospistlaist of arrival, denies other needs at ths time
[2019-03-30 12:10] VITALS: BP 134/59; PULSE 89; TEMP 98.1
[2019-03-30 14:44] LABS: BASO # 0.1 (0.0-0.2); BASO % 0.7 % (0.0-2.0); EOS # 2.3 (0.0-0.7); EOS % 18.7 % (0-4.0); GRAN # 8.6 (1.4-6.5); GRAN % 68.9 % (42.2-75.2); HEMATOCRIT 42.9 % (42.0-52.0); LYMPH # 1.1 (1.2-3.4); LYMPH % 8.7 % (20.0-51.0); MEAN CELL VOLUME 86 fl (80.0-100.0); MEAN CORPUSCULAR HEMOGLOBIN 28 pg (27.0-31.0); MEAN CORPUSCULAR HGB CONC 33 g/dl (33.0-37.0); MEAN PLATELET VOLUME 11.9 fl (7.4-10.4); MONO # 0.3 (0.1-0.6); MONO % 2.4 % (1.7-9.3); PLATELET COUNT 230 K/mm3 (130-400); RED BLOOD COUNT 4.98 M/mm3 (4.20-5.60); REDCELL DISTRIBUTION WIDTH-CV 13.1 % (11.5-14.5)
[2019-03-30 14:55] LABS: ALANINE AMINOTRANSFERASE 11 U/L (21-72); ALBUMIN 3.7 gm/dL (3.5-5.0); ALKALINE PHOSPHATASE 123 U/L (50-136); ANION GAP 9 mmol/L (7-16); AST,SGOT 24 U/L (15-37); BLOOD UREA NITROGEN 15 mg/dL (9-20); CALCIUM 9.2 mg/dL (8.4-10.2); CARBON DIOXIDE 25 mmol/L (22-30); CHLORIDE 101 mmol/L (98-107); CREATININE, serum 0.93 (0.66-1.25); GLUCOSE 244 mg/dL (74-106); POTASSIUM 4.4 mmol/L (3.4-5.0); SODIUM 136 mmol/L (137-145); TOTAL PROTEIN 7.2 gm/dL (6.4-8.2)
[2019-03-30 15:05] LABS: TROPONIN-I < 0.012 ng/mL (0.000-0.035)
[2019-03-30 16:10] VITALS: BP 143/64; PULSE 91; TEMP 98.5
--- NOTE | 2019-03-30 18:55 | NUR ---
Report received by Arvind CASTREJON. Pt resting in bed at this time.
[2019-03-30 20:00] VITALS: BP 134/89; PULSE 96; TEMP 98.5
--- NOTE | 2019-03-30 20:50 | NUR ---
This nurse entered pt room in order to administer medication and complete assessment. Pt was resting in bed at this time with blankets over abdomen and legs. Explained name and purpose of medications that were scheduled to be administered. Pt voiced concern regarding steroid IV medication due to increasing blood glucose levels. Nurse explained the need for steroids, and looked on the H&P in order to explain from the doctors point of view the POC regarding antibiotics. When this nurse was discussing medications with pt pt continued to express frustration verbally on need to change medications stating "the doctor did not discuss any of this with me, there are changes in medications, this is frustrating to me because one doctor is telling me one thing and another doctor is telling me another." After minutes of talking with the patient with attempts to come to an understanding of POC this nurses phone rang 2 times. On the second time pt waved left hand to nurse saying "go take care of your other patients." When nurse expressed that this current pt was my priority pt turned in bed with back towards this nurse and stated it again. Nurse left the room and notified housekeeping/laundry supervisor who was sitting outside of the pts room at the nurses station.
--- NOTE | 2019-03-30 23:00 | NUR ---
I had mentioned to this patient that the hospitalist APPLICATION INTEGRATION ARCHITECT has been notified of the questions that had been presented regarding care and the medications that have been chosen and why steroids are ordered if it increases blood sugar. Pt had expressed to this nurse "don't have her waste her time", "there is no reason to get a third constitution party involved that doesnt know what is going on." Pt was assured that direct communication between the APPLICATION INTEGRATION ARCHITECT and hospitalist has occurred. This nurse notified [facility] APPLICATION INTEGRATION ARCHITECT of pt request. APPLICATION INTEGRATION ARCHITECT approached pts room despite pts comments reported by this nurse. This nurse and APPLICATION INTEGRATION ARCHITECT sat with pt for a period of time in order to discuss medications and POC. Pt expressed frustrations with the hospital that was expressed to this nurse prior with statements such as "I didn't want to even come here". " I don't want to be here". " If there were any other hospital in town to go to that is where I would be". Pt reported a bad experience in 2017 with staff here although this nurse did not get details on what exactly happened. Pt expressed feelings of "the lack of communication in this hospital" which was repeated multiple times through out discussions between this nurse and pt so far this shift. Pt did not know medications by name when discussing the difference between BP and high cholesterol medications and reported that medication list stated medications were to be taken "specifically at night" although on a medication pt was talking about it states "daily". APPLICATION INTEGRATION ARCHITECT and pt discussed health matters and then pt was friendly with APPLICATION INTEGRATION ARCHITECT by talking about things in common such as agriculture prior to [facility] departure. This nurse then completed a head to toe shift assessment at which point asked for details on pts right foot, specifically why it was all wrapped/ bandaged up and pt threw arms in the air and stated "this is what Im talking about, the lack of communication in this hospital, this should all be in my chart." This nurse politely replied "I am not trying to argue with you." Ensured pts belongings were at bedside and there were no further needs and exited the pts room.
[2019-03-31] VITALS (7 sets, daily range): BP systolic 93–149; BP diastolic 59–90; PULSE 81–88; TEMP 97.8–98.6
--- NOTE | 2019-03-31 00:30 | NUR ---
Pt notified that Dr. Quinones requests that 2 units of PRBC's be infused. Explained to pt the risk and benefits of transfusion. Pt denies prior transfusion. Explained that prior injection of KIRILL did not result in an increase in hgb as hoped for. Will place continued order per written instructions for type and cross with PRBC X2 units.
[2019-03-31 06:22] LABS: BASO % 0.3 % (0.0-2.0); EOS # 0.1 (0.0-0.7); EOS % 0.5 % (0-4.0); GRAN # 9.4 (1.4-6.5); GRAN % 86.8 % (42.2-75.2); HEMATOCRIT 40.1 % (42.0-52.0); HEMOGLOBIN 13.4 g/dl (13.5-18.0); LYMPH % 9.7 % (20.0-51.0); MEAN CELL VOLUME 84 fl (80.0-100.0); MEAN CORPUSCULAR HEMOGLOBIN 28 pg (27.0-31.0); MEAN CORPUSCULAR HGB CONC 33 g/dl (33.0-37.0); MEAN PLATELET VOLUME 11.8 fl (7.4-10.4); MONO # 0.2 (0.1-0.6); MONO % 1.9 % (1.7-9.3); PLATELET COUNT 243 K/mm3 (130-400); RED BLOOD COUNT 4.79 M/mm3 (4.20-5.60); REDCELL DISTRIBUTION WIDTH-CV 12.8 % (11.5-14.5)
[2019-03-31 06:36] LABS: CALCIUM 9.3 mg/dL (8.4-10.2); CREATININE, serum 0.91 (0.66-1.25); POTASSIUM 4.6 mmol/L (3.4-5.0)
--- NOTE | 2019-03-31 07:10 | NUR ---
Report provided to Jagruti CASTREJON. Pt resting in bed. Answers are short in responce to nursing staff.
--- NOTE | 2019-03-31 08:00 | NUR ---
Received report. Introduced self to patient and he verbalized frustration regarding the steroid and blood sugars. Was explained to patient the side effect and benefits vs risks and he still had verbalized his dissatistfaction. Was encouraged to visit with provider regarding this and he was irritated regarding that solution but stated he would. Personal items and call light are within reach.
--- NOTE | 2019-03-31 14:03 | NUR ---
SW met with patient to discuss discharge planning. Patient lives independently at home alone. Patient's PCP is Dr Segal and he obtains prescriptions from [facility]. Patient doesn't use any home health or DME. Patient does not have a DPOA and is not interested in obtaining one. SW does not anticipate any discharge needs.
--- NOTE | 2019-03-31 18:46 | NUR ---
Patient sitting up on the edge of the bed finishing up dinner. A&O, complaints of high blood sugars and nursing staff and doctor not informing patient of plan of care. LUCÍA Raza food production supervisor aware. VS stable. IV CDI. No further needs expressed from patient. Call light within reach
--- NOTE | 2019-03-31 20:35 | NUR ---
Patient resting in bed, assessmnet completed. VSS, afebrile. Pt upset about increasing blood sugars, states, "they keep going up and you all just keep saying they will come down after my medications change". This nurse explained that solu-medrol and stress can increase blood sugars and that levemir dose has been increased to 45 units and on high sliding scale for insulin. Pt still quite upset, but does not want anything at this time. No further needs at this time.
[2019-03-31 23:15] LABS: RHEUMATOID FACTOR-SCREEN <15 IU/mL (0-29)
[2019-04-01] VITALS (7 sets, daily range): BP systolic 115–147; BP diastolic 55–70; PULSE 67–90; TEMP 97.7–98.5
--- NOTE | 2019-04-01 05:12 | NUR ---
Pt slept for most of the night, VSS, afebrile, no reports of pain. Upset about increasing blood sugar levels, HS level 290- recieved HSS novolog and 45 u of levemir.
--- NOTE | 2019-04-01 06:49 | NUR ---
report given to LUCÍA Jackson.
[2019-04-01 06:59] LABS: BASO % 0.1 % (0.0-2.0); EOS % 0.1 % (0-4.0); GRAN # 15.8 (1.4-6.5); GRAN % 89.3 % (42.2-75.2); LYMPH # 1.1 (1.2-3.4); LYMPH % 5.9 % (20.0-51.0); MEAN CELL VOLUME 84 fl (80.0-100.0); MEAN CORPUSCULAR HEMOGLOBIN 28 pg (27.0-31.0); MEAN CORPUSCULAR HGB CONC 33 g/dl (33.0-37.0); MEAN PLATELET VOLUME 11.9 fl (7.4-10.4); MONO # 0.7 (0.1-0.6); MONO % 3.7 % (1.7-9.3); PLATELET COUNT 244 K/mm3 (130-400); RED BLOOD COUNT 4.65 M/mm3 (4.20-5.60)
[2019-04-01 07:11] LABS: CALCIUM 9.4 mg/dL (8.4-10.2); CREATININE, serum 0.99 (0.66-1.25); POTASSIUM 4.7 mmol/L (3.4-5.0)
[2019-04-01 09:40] LABS: INR 1.1 (0.8-3.0); PROTHROMBIN TIME 12.6 SECONDS (9.7-12.8)
--- NOTE | 2019-04-01 10:07 | NUR ---
Assessment complete.patient awake,a/ox3.denies pain or discomfort at this time.breathing even and unlabored.crackles aus. to bilat lower lobes.pt report productive cough.bronchoscopy scheduled for 1200 today.morning medications held per orders.Vss.consent signed.patient has a cast to left lower extremity.no other needs voiced at this time.will continue to monitor.call light in reach
--- NOTE | 2019-04-01 10:24 | NUR ---
Patient was sleeping so I did not disturb him>
--- NOTE | 2019-04-01 11:30 | NUR ---
Visited, listened, provided spiritual care.
--- NOTE | 2019-04-01 11:58 | NUR ---
pt taken to the OR for a bronchoscopy.
--- NOTE | 2019-04-01 12:40 | NUR ---
pt return to room from OR.awake,on oxygen at 6L/OXymask.VSS.will continue to monitor oxygen. report received Ruth from OR and she started that patient's broncoscopy was aborted by as a resulted of patient O2 dropped to 70s. pt is back in room at this time and is rounding on patient.will continue to monitor.call light in reach
--- NOTE | 2019-04-01 12:46 | NUR ---
O2 AT 95% ON 4L/OXYMASK AT THIS TIME.PATIENT DENIES SOB.CONTINUES TO COUGH.
--- NOTE | 2019-04-01 18:42 | NUR ---
pt on RA at this time.breathing even and unlabored.VSS.denies any needs at this time.will continue to monitor.
--- NOTE | 2019-04-01 19:36 | NUR ---
REPORT GIVEN TO LUCÍA SINGH.
--- NOTE | 2019-04-02 00:43 | NUR ---
Initial shift assessment done- Tele on, cooperative, given some viviana crackers for HS snack, pt states its riduculous to be awakened at 0100 for heparin shot-- states wants it on better schedule so will wait till 0600 and start new every 8 hr schedule at that time-
[2019-04-02 04:18] VITALS: BP 128/71; PULSE 64; TEMP 98.3
--- NOTE | 2019-04-02 06:00 | NUR ---
INT site leaking- gael phillips Restarted by Isabelle CASTREJON 22G to right wrist area- Did rest for a few hours during the night-- Did have shower before bed last night and linens changed
[2019-04-02 07:13] VITALS: BP 138/77; PULSE 68; TEMP 98.4
--- NOTE | 2019-04-02 08:05 | NUR ---
Up at the side of the bed eating breakfast. No pain or needs reported at this time. Insulin provided with breakfast 31u for blood sugar of 219. The call light is in place.
[2019-04-02 09:36] LABS: BASO % 0.1 % (0.0-2.0); EOS % 0.1 % (0-4.0); GRAN # 12.5 (1.4-6.5); HEMATOCRIT 38.3 % (42.0-52.0); HEMOGLOBIN 12.9 g/dl (13.5-18.0); LYMPH # 0.9 (1.2-3.4); LYMPH % 6.4 % (20.0-51.0); MEAN CELL VOLUME 84 fl (80.0-100.0); MEAN CORPUSCULAR HEMOGLOBIN 28 pg (27.0-31.0); MEAN CORPUSCULAR HGB CONC 34 g/dl (33.0-37.0); MEAN PLATELET VOLUME 12.7 fl (7.4-10.4); MONO # 0.5 (0.1-0.6); MONO % 3.8 % (1.7-9.3); PLATELET COUNT 236 K/mm3 (130-400); RED BLOOD COUNT 4.54 M/mm3 (4.20-5.60)
--- NOTE | 2019-04-02 09:52 | NUR ---
Gone doen to CT at this time.
[2019-04-02 10:00] LABS: CALCIUM 9.1 mg/dL (8.4-10.2); CREATININE, serum 0.91 (0.66-1.25); POTASSIUM 4.5 mmol/L (3.4-5.0)
[2019-04-02 10:49] VITALS: BP 136/62; PULSE 72; TEMP 98.2
[2019-04-02] MEDS ORDERED: IPRATROPIUM BROM3 M1 IH (12:17)
[2019-04-02] MEDS ORDERED: LEVAQUIN 750MG750 M1 PO (12:17)
[2019-04-02] MEDS ORDERED: PREDNISONE 5MG5 MG PO (12:20)
--- NOTE | 2019-04-02 15:32 | NUR ---
This patient called and notified about work restrictions. The patient refused a note. The patient was educated that the note was on file as needed and to please call if he needed.
[2019-04-03 12:11] LABS: ANGIOTENSIN CONVERTING ENZYME 39 U/L (16 - 85)
[2019-04-05 01:33] LABS: ANA SCREEN with REFLEX Negative (Negative)
[2019-04-06 08:54] LABS: .HISTOPLASMA ANTIGEN SERUM None Detected (())
[2019-04-06 16:21] LABS: ASPERGILLUS NIGER IgE XXX
[2019-04-06 16:21] LABS: BORDETELLA PERTUSSIS IGG-AMS XXX
[2019-04-06 16:24] LABS: HISTOPLASMA ID Negative (Negative); HISTOPLASMA MYCELIAL Negative (Negative)
[2019-04-06 18:04] LABS: C.pneumoniae IgM <1:10 titer (<1:10); C.psitt IgG <1:64 titer (<1:64); C.psitt IgM <1:10 titer (<1:10); C.trachomatis IgG <1:64 titer (<1:64); C.trachomatis IgM <1:10 titer (<1:10)
== END 2019-04-02 16:23 | disposition home or self-care (01) | DRG 195 ==
LOC: MEDICAL 09:34
PROVIDERS: Internal Medicine Critical Care Medicine; Internal Medicine Infectious Disease; Internal Medicine Pulmonary Disease; Physician Assistant; ADMIT Hospitalist
DX: J18.9 Pneumonia, unspecified organism (principal); I10 Essential (primary) hypertension; E11.21 Type 2 diabetes mellitus with diabetic nephropathy; Z79.4 Long term (current) use of insulin; Z89.422 Acquired absence of other left toe(s); E78.5 Hyperlipidemia, unspecified; N52.9 Male erectile dysfunction, unspecified; Z87.891 Personal history of nicotine dependence; Z88.1 Allergy status to other antibiotic agents; Z88.8 Allergy status to other drugs, medicaments and biological substances; Z83.3 Family history of diabetes mellitus; Z53.09 Procedure and treatment not carried out because of other contraindication
CPT/HCPCS: 99222-AI; 99232-AI; 99233-AI; 99239; A4216; J0696; J1644; J1650; J1815; J1956; J2704; J2930; J7120; Q9967

== ENCOUNTER → 2019-07-26 | Outpatient (CLI) | payer BC, MEDICARE ==
[~2019-07-26] MED LIST changes: +ASPIRIN E.C. 8181 MG PO; +COZAAR 50MG50 MG/TAB PO; +DOXYCYCLINE 10100 MG PO; +IPRATROPIUM BROM3 M1 IH; +LEVAQUIN 750MG750 M1 PO; +PREDNISONE 5MG5 MG PO; +PROAIR HFA0.09 MG/AC IH
== END ==
LOC: ZCOL.LAB 10:22
DX: S91.302A Unspecified open wound, left foot, initial encounter (principal)

== ENCOUNTER 2019-08-23 18:30 | Observation (INO) | payer BC, MEDICARE ==
[~2019-08-23] VITALS: Ht 172.7 cm; Wt 110.4 kg
[2019-08-23 18:56] LABS: BASO # 0.2 (0.0-0.2); BASO % 1.2 % (0.0-2.0); EOS # 2.6 (0.0-0.7); EOS % 20.7 % (0-4.0); GRAN % 47.1 % (42.2-75.2); HEMATOCRIT 41.8 % (42.0-52.0); HEMOGLOBIN 13.7 g/dl (13.5-18.0); LYMPH % 23.9 % (20.0-51.0); MEAN CELL VOLUME 85 fl (80.0-100.0); MEAN CORPUSCULAR HEMOGLOBIN 28 pg (27.0-31.0); MEAN CORPUSCULAR HGB CONC 33 g/dl (33.0-37.0); MEAN PLATELET VOLUME 11.6 fl (7.4-10.4); MONO # 0.9 (0.1-0.6); MONO % 6.8 % (1.7-9.3); PLATELET COUNT 229 K/mm3 (130-400); RED BLOOD COUNT 4.92 M/mm3 (4.20-5.60); REDCELL DISTRIBUTION WIDTH-CV 13.6 % (11.5-14.5)
[2019-08-23 19:09] LABS: ALANINE AMINOTRANSFERASE 12 U/L (21-72); ALBUMIN 4.2 gm/dL (3.5-5.0); ALKALINE PHOSPHATASE 90 U/L (50-136); ANION GAP 7 mmol/L (7-16); AST,SGOT 25 U/L (15-37); BILIRUBIN,TOTAL 0.7 mg/dL (0.0-1.0); BLOOD UREA NITROGEN 22 mg/dL (9-20); C-REACTIVE PROTEIN 1.4 mg/dL (0.0-0.9); CALCIUM 8.8 mg/dL (8.4-10.2); CARBON DIOXIDE 26 mmol/L (22-30); CHLORIDE 104 mmol/L (98-107); CREATININE, serum 0.91 (0.66-1.25); GLUCOSE 173 mg/dL (74-106); POTASSIUM 3.9 mmol/L (3.4-5.0); SODIUM 138 mmol/L (137-145); TOTAL PROTEIN 7.4 gm/dL (6.4-8.2)
[2019-08-23 19:19] LABS: TROPONIN-I < 0.012 ng/mL (0.000-0.035)
[2019-08-23 22:26] VITALS: BP 123/52; PULSE 85; TEMP 98.1
--- NOTE | 2019-08-24 00:20 | NUR ---
Pt sat up at a 90 degree angle. Took a sip of water with no choking or coughing. Encouraged pt to tuck chin when taking drink of water if he felt like he was. Completed the bedside swallow test. Had no difficulty swallowing.
[2019-08-24 04:16] VITALS: BP 130/58; PULSE 80; TEMP 98.3
[2019-08-24 07:45] LABS: HEMATOCRIT 39.5 % (42.0-52.0); MEAN CELL VOLUME 85 fl (80.0-100.0); MEAN CORPUSCULAR HEMOGLOBIN 28 pg (27.0-31.0); MEAN CORPUSCULAR HGB CONC 33 g/dl (33.0-37.0); MEAN PLATELET VOLUME 12.5 fl (7.4-10.4); PLATELET COUNT 200 K/mm3 (130-400); RED BLOOD COUNT 4.65 M/mm3 (4.20-5.60); REDCELL DISTRIBUTION WIDTH-CV 13.7 % (11.5-14.5)
[2019-08-24 07:58] LABS: CREATININE, serum 0.84 (0.66-1.25)
[2019-08-24 08:25] LABS: TSH w REFLEX 0.567 uIU/mL (0.465-4.680)
[2019-08-24 08:29] VITALS: BP 141/73; PULSE 72; TEMP 97.2
--- NOTE | 2019-08-24 08:30 | NUR ---
PT LAYING IN BED UPON ENTRY. NO C/O OF PAIN OR SOB NOTED. PT EXPRESSED CONCERN WITH PLAN OF CARE. PT WAS NOT HAPPY WITH NOT BEING INFORMED OF EVERY TEST AND PROCEDURE. THIS NURSE AND NURSE HUERTA EXPLAINED TO PT HIS PLAN OF CARE. PT VERBALIZED UNDERSTANDING. CALL LIGHT WITHIN REACH.
[2019-08-24 11:35] VITALS: BP 131/51; PULSE 86; TEMP 98.1
[2019-08-24 15:52] VITALS: BP 112/48; PULSE 84; TEMP 98.1
--- NOTE | 2019-08-24 16:38 | NUR ---
JOSÉ LUIS met with the patient to discuss a discharge plan. The patient stated "I do not want to talk to anyone or answer anymore questions." I then asked the patient if someone could come back tomorrow, 08/25 and the patient stated, "I probably will not talk to them tomorrow either." There are no additional needs at this time.
--- NOTE | 2019-08-24 19:27 | NUR ---
PT RESTING IN BED. QUESTIONS AND CONCERNS ADDRESSED BY DR LE PRIOR TO STARTING ANTIBX. PT EXPRESSED RELIEF OF BEING INFORMED ON POC. NO C/O PAIN OR SOB. INSULIN GIVEN PRIOR TO EATING. PT EATING WELL. CALL LIGHT WITHIN REACH. REPORT GIVEN TO LUCÍA TREVIÑO.
[2019-08-24 20:00] VITALS: BP 122/56; PULSE 79; TEMP 98.4
--- NOTE | 2019-08-24 21:00 | NUR ---
Shift assessment complete. Pt reminded he will be NPO at midnight for procedure in the AM. BS this evening was 179 with 2 units Novolog given. L foot remains wrapped from clinic. HR reg, LS with rales bila.
[2019-08-24 23:12] LABS: IMMUNOGLOBULIN A 148 mg/dL (101-645); IMMUNOGLOBULIN G 1106 mg/dL (540-1822); RHEUMATOID FACTOR-SCREEN 55 IU/mL (0-29)
[2019-08-24 23:29] LABS: PROCALCITONIN 0.02 ng/mL (0.00-0.09)
[2019-08-24 23:43] VITALS: BP 119/52; PULSE 84; TEMP 98
[2019-08-25 05:20] VITALS: BP 127/56; PULSE 66; TEMP 97.8
--- NOTE | 2019-08-25 07:58 | NUR ---
Pt reports a fair night of sleep. Appeared to be sleeping at the different times pt was checked in on. Better mood last night. Blood sugar was 248 this AM. Going down for GI study around 7 this morning. Report given to LUCÍA Lin.
[2019-08-25 07:59] VITALS: BP 115/54; PULSE 76; TEMP 98
--- NOTE | 2019-08-25 09:51 | NUR ---
Initial visit; Patient than;lizette Box Office Manager for looking in on him andoffering God's blessings. Patient stated he had received Holy Communion yesterday.
[2019-08-25 11:09] VITALS: BP 115/49; PULSE 67; TEMP 98.1
[2019-08-25 13:24] LABS: ANA SCREEN with REFLEX Negative (Negative)
--- NOTE | 2019-08-25 16:10 | NUR ---
SW attempted to meet with the patient again to discuss a discharge plan. The patient reports that he does not want or need to answer any questions. Records state that he lives alone in [place]. His PCP is Dr. Ross Segal. Tentative discharge back home tomorrow, 08/26. No additional needs at this time.
[2019-08-25 16:44] VITALS: BP 131/58; PULSE 74; TEMP 98.8
--- NOTE | 2019-08-25 18:00 | NUR ---
PT HAD UNEVENTFUL DAY. PLEASENT AND COOPERATIVE WITH CARES THIS SHIFT. DID VOICED UPSETNESS ABOUT LEVIMER AND IT "NOT WORKING" PROVIDED NOVOLOG PER S/S AND SCHEDULED INSULIN.
[2019-08-25 19:42] VITALS: BP 117/65; PULSE 66; TEMP 98.6
--- NOTE | 2019-08-25 21:10 | NUR ---
Lungs clear. Patient has a dry, nonproductive cough. Left foot with shelli dressing CDI. Denies pain. Reviewed with the patient when his medications were due for the evening. Patient verbalizes understanding and denies further needs.
--- NOTE | 2019-08-25 21:38 | NUR ---
Evening accu check is 65. Patient provided with orange juice and crackers. Called Ms. Hernández and explained blood sugar and that we will not give the Novolog but he is also scheduled for Levemir 40units. Received orders to hold the Levemir for tonight. Patient informed that we will not be giving him insulin. Patient expresses frustration that he knows his blood sugars better than anyone and wishes that the provider would speak with him before just not giving the insulin. Explained that we can call the provider and ask her to come talk to him. Patient declines. Verbalizes understanding to everything and denies further needs at this time.
--- NOTE | 2019-08-25 21:50 | NUR ---
Patient ambulated to bathroom. Gait steady. Returned to bed. Denies any concerns or needs.
[2019-08-25 23:08] VITALS: BP 113/48; PULSE 76; TEMP 98.7
--- NOTE | 2019-08-26 00:33 | NUR ---
Lying in bed resting. No signs or symptoms of discomfort noted.
--- NOTE | 2019-08-26 01:54 | NUR ---
Lying in bed with eyes closed. Eyes open when name called out. Lovenox injection administered as prescribed. Patient denies pain or further concerns or needs.
--- NOTE | 2019-08-26 03:59 | NUR ---
Lying in bed on right side with eyes closed. Respirations even and unlabored. No signs or symptoms of discomfort.
[2019-08-26 04:10] VITALS: BP 111/68; PULSE 65; TEMP 98.1
--- NOTE | 2019-08-26 06:33 | NUR ---
Lying in supine position with eyes closed. Respirations even and unlabored. No signs or symptoms of discomfort noted.
[2019-08-26 08:23] VITALS: BP 114/65; PULSE 70; TEMP 97.3
[2019-08-26 11:37] VITALS: BP 128/59; PULSE 69; TEMP 98.2
[2019-08-26 13:47] LABS: IMMUNOGLOBULIN D <1 mg/dL (<=10)
[2019-08-26] MEDS ORDERED: CLEOCIN HCL300 MG PO (14:45)
[2019-08-26] MEDS ORDERED: PREDNISONE20 MG PO (14:49)
--- NOTE | 2019-08-26 15:30 | NUR ---
Afebrile. Occasional harsh cough. Hospitalist talked at length with patient about condition and follow up. Take home pack of antibiotic given. Dismissed to home.
[2019-08-26 16:43] LABS: ANGIOTENSIN CONVERTING ENZYME 46 U/L (16 - 85)
== END 2019-08-26 15:30 | disposition home or self-care (01) ==
LOC: COL.ER 18:30 → MEDICAL 21:16
PROVIDERS: Emergency Medicine; Internal Medicine Pulmonary Disease; ADMIT Student in an Organized Health Care Education/Training Program
DX: R05 Cough (principal); E11.9 Type 2 diabetes mellitus without complications; Z79.4 Long term (current) use of insulin; I10 Essential (primary) hypertension; E78.5 Hyperlipidemia, unspecified; E66.9 Obesity, unspecified; I27.20 Pulmonary hypertension, unspecified; Z87.891 Personal history of nicotine dependence; M20.60 Acquired deformities of toe(s), unspecified, unspecified foot; I34.0 Nonrheumatic mitral (valve) insufficiency; I73.9 Peripheral vascular disease, unspecified; Z87.01 Personal history of pneumonia (recurrent)
CPT/HCPCS: 99239; A9541; G0378; J1200; J1650; J1815; J1956; J2543; J2930; J7512

== ENCOUNTER 2019-11-15 08:37 | Emergency (ER) | payer BC ==
[~2019-11-15] VITALS: Ht 172.7 cm; Wt 113.2 kg
[~2019-11-15 08:37] MED LIST changes: +CLEOCIN HCL300 MG PO; +PREDNISONE20 MG PO
[2019-11-15 08:49] VITALS: TEMP 97
[2019-11-15 09:27] LABS: BASO # 0.1 (0.0-0.2); BASO % 0.8 % (0.0-2.0); EOS # 1.3 (0.0-0.7); EOS % 10.5 % (0-4.0); GRAN # 8.7 (1.4-6.5); GRAN % 68.3 % (42.2-75.2); HEMATOCRIT 46.5 % (42.0-52.0); HEMOGLOBIN 15.3 g/dl (13.5-18.0); LYMPH # 1.7 (1.2-3.4); LYMPH % 13.6 % (20.0-51.0); MEAN CELL VOLUME 86 fl (80.0-100.0); MEAN CORPUSCULAR HEMOGLOBIN 28 pg (27.0-31.0); MEAN CORPUSCULAR HGB CONC 33 g/dl (33.0-37.0); MEAN PLATELET VOLUME 11.6 fl (7.4-10.4); MONO # 0.8 (0.1-0.6); MONO % 6.5 % (1.7-9.3); PLATELET COUNT 248 K/mm3 (130-400); RED BLOOD COUNT 5.39 M/mm3 (4.20-5.60); REDCELL DISTRIBUTION WIDTH-CV 12.9 % (11.5-14.5)
[2019-11-15 09:35] LABS: ALBUMIN 4.2 gm/dL (3.5-5.0); BILIRUBIN,TOTAL 0.9 mg/dL (0.0-1.0); CALCIUM 9.2 mg/dL (8.4-10.2); CREATININE, serum 1.09 (0.66-1.25); POTASSIUM 4.5 mmol/L (3.4-5.0); TOTAL PROTEIN 7.7 gm/dL (6.4-8.2)
[2019-11-15] MEDS ORDERED: ZITHROMAX Z PA250 MG PO (11:17)
[2019-11-15] MEDS ORDERED: PREDNISONE20 MG PO (11:17)
[2019-11-15 12:21] VITALS: BP 152/75; PULSE 89
== END 2019-11-15 12:21 | disposition home or self-care (01) ==
LOC: COL.ER 08:37
PROVIDERS: Family Medicine
DX: J45.901 Unspecified asthma with (acute) exacerbation (principal); E11.9 Type 2 diabetes mellitus without complications; J18.9 Pneumonia, unspecified organism; Z79.4 Long term (current) use of insulin; Z79.82 Long term (current) use of aspirin
CPT/HCPCS: J2930; Q9967

== ENCOUNTER → 2019-12-04 | Outpatient (CLI) | payer BC ==
[~2019-12-04] MED LIST changes: +ZITHROMAX Z PA250 MG PO
== END ==
LOC: ZCOL.LAB 13:57
DX: T14.8XXA Other injury of unspecified body region, initial encounter (principal)

== ENCOUNTER → 2020-05-13 | Outpatient (CLI) | payer BC | LOC: ZCOL.LAB 14:23 | DX: E11.621 Type 2 diabetes mellitus with foot ulcer (principal); L97.529 Non-pressure chronic ulcer of other part of left foot with unspecified severity ==

== ENCOUNTER 2020-06-19 15:14 | Emergency (ER) | payer BC, MEDICARE ==
[~2020-06-19] VITALS: Ht 172.7 cm; Wt 113.6 kg
[2020-06-19 16:30] LABS: BASO # 0.1 (0.0-0.2); BASO % 0.5 % (0.0-2.0); EOS # 0.2 (0.0-0.7); EOS % 1.5 % (0-4.0); GRAN # 8.5 (1.4-6.5); GRAN % 77.7 % (42.2-75.2); HEMOGLOBIN 11.2 g/dl (13.5-18.0); LYMPH # 1.1 (1.2-3.4); LYMPH % 10.3 % (20.0-51.0); MEAN CELL VOLUME 86 fl (80.0-100.0); MEAN CORPUSCULAR HEMOGLOBIN 28 pg (27.0-31.0); MEAN CORPUSCULAR HGB CONC 33 g/dl (33.0-37.0); MEAN PLATELET VOLUME 10.6 fl (7.4-10.4); MONO % 9.3 % (1.7-9.3); PLATELET COUNT 360 K/mm3 (130-400); RED BLOOD COUNT 3.98 M/mm3 (4.20-5.60); REDCELL DISTRIBUTION WIDTH-CV 12.2 % (11.5-14.5)
[2020-06-19 16:31] LABS: HEMATOCRIT 34.2 % (42.0-52.0)
[2020-06-19 16:45] LABS: ALBUMIN 3.5 gm/dL (3.5-5.0); BILIRUBIN,TOTAL 1.2 mg/dL (0.0-1.0); CREATININE, serum 1.02 (0.66-1.25); TOTAL PROTEIN 7.4 gm/dL (6.4-8.2)
[2020-06-19] MEDS ORDERED: NEURONTIN300 MG/CAP PO (17:55)
[2020-06-19] MEDS ORDERED: BACTRIM DS 8001 TAB PO (17:55)
[2020-06-19 18:27] VITALS: BP 138/74; PULSE 76; TEMP 99
== END 2020-06-19 18:25 | disposition home or self-care (01) ==
LOC: COL.ER 15:14
PROVIDERS: Nurse Practitioner Primary Care
DX: M86.9 Osteomyelitis, unspecified (principal); E11.42 Type 2 diabetes mellitus with diabetic polyneuropathy; I10 Essential (primary) hypertension; Z79.4 Long term (current) use of insulin; Z79.52 Long term (current) use of systemic steroids
CPT/HCPCS: J2405; J3010

== ENCOUNTER → 2021-08-21 | Outpatient (CLI) | payer BC ==
[~2021-08-21] MED LIST changes: +NEURONTIN300 MG/CAP PO
== END ==
LOC: ZCOL.LAB 17:46
DX: Z89.519 Acquired absence of unspecified leg below knee (principal)